=== PATIENT | female | born 1970 | race Caucasian/White ===

== ENCOUNTER 2017-12-31 13:01 | Emergency (ER) | payer BC ==
[~2017-12-31] VITALS: Ht 170.2 cm; Wt 83.0 kg
[2017-12-31 13:06] VITALS: TEMP 36.8; Ht 170.2 cm; Wt 83.0 kg
--- NOTE | 2017-12-31 13:52 | EMERGENCY ROOM VISIT NOTE ---
History Report prepared by Eber: Tanesha Richard Under the Supervision of: Dr. Raulito Arteaga M.D. First contact with patient: 13:31 Chief Complaint: SEIZURE Stated Complaint: SEIZURE Nursing Triage Summary: patient at [facility] for alchool recovery. without a drink since December 15. was drinking 1/5 of vodka on daily basis. today was outside at [place] smoking a cigarette when she felt herself becoming shaky. next thing she remembers she woke up in a different area than the smokers hut and with people all around. she was told she had a grandmal seizure that lasted approx 10 min. EMS states she was A&O x 4 upon arrival. patient alert and oriented in ER. History of Present Illness The patient is a 47 year old female who presents to the Emergency Room with complaints of an episode of a seizure beginning today. The patient notes she has been at [facility] for alcohol recovery for the last 2 weeks, and her last drink was 2 weeks ago. She states her seizure was witnessed and she was caught before she hit her head. The patient notes she was told she had a grand mal seizure and was Grand mal 10 minutes. She reports she had a headache, which has since resolved. The patient denies any fevers. She notes she is tapering off Flexor, and stopped taking Kepra last night (was on 500 mg). She denies a history of diabetes. The patient reports a history of hysterectomy. Source of History: patient Onset: today Position: head Quality: other (seizure) Timing: other (episode) Associated Symptoms: + headache (resolved), No fevers Review of Systems See HPI for pertinent positives and negatives. A total of ten systems were reviewed and were otherwise negative. Past Medical & Surgical Surgical Problems: (1) Hx of hysterectomy Social History Problems: (1) Alcohol abuse Family History No pertinent family history stated. Social History Smoking Status: Current Every Day Smoker Alcohol Use: other (in recovery for alcohol abuse, last drink 12/14/17) Housing Status: other ([facility]) Current/Historical Medications Scheduled Esomeprazole Magnesium (Nexium), 40 MG PO DAILY Folic Acid (Folic Acid), 1 MG PO DAILY Levetiracetam (Keppra), 500 MG PO BID Multivitamin (Multivitamin), 1 TAB PO DAILY Potassium Ext Rel (Klor-Con), 20 MEQ PO DAILY Thiamine Hcl (Vitamin B-1), 100 MG PO DAILY Venlafaxine Hcl (Effexor Extended Rel), 150 MG PO QAM Venlafaxine Hcl (Effexor Xr), 37.5 MG PO QAM Scheduled PRN Diphenhydramine Hcl (Benadryl Allergy), 25 MG PO TID PRN for Allergic Reaction Valacyclovir (Valtrex), 500 MG PO BID PRN for COLD SORES Allergies Coded Allergies: Morphine (Unverified Allergy, Intermediate, SWELLING, RASH, 12/31/17) Physical Exam Vital Signs Date Time Temp Pulse Resp B/P (MAP) Pulse Ox O2 Delivery O2 Flow Rate FiO2 12/31/17 15:00 76 20 115/76 98 Room Air 12/31/17 13:15 80 12/31/17 13:06 36.8 88 20 125/91 98 Room Air Physical Exam Physical Exam GENERAL: She is oriented to person, place, and time. She appears well- developed and well-nourished. She does not appear distressed. HENT: Exam performed. Head: Normocephalic and atraumatic. Right Ear: External ear normal. No mastoid tenderness. Left Ear: External ear normal. No mastoid tenderness. Mouth/Throat: The oropharynx is clear and moist. No trismus in the jaw. No dental abscesses or uvula swelling. No oropharyngeal exudate or tonsillar abscesses. EYES: Conjunctivae and EOM are normal. Pupils are equal, round, and reactive to light. Right eye exhibits no discharge. Left eye exhibits no discharge. No scleral icterus. NECK: Normal range of motion. Neck supple. No JVD present. No spinous process tenderness present. No carotid bruit present. No rigidity. No tracheal deviation and normal range of motion present. No Brudzinski's sign and no Kernig 's sign noted. CV: Normal rate, regular rhythm, normal heart sounds and intact distal pulses. There is no peripheral edema. Palpable radial pulses bue. PULM/CHEST: Effort normal and breath sounds normal. No respiratory distress. No stridor. She has no wheezes. She has no rales. Chest Wall: She exhibits no tenderness. ABD: The abdomen is soft. Bowel sounds are normal. She has no distension. No mass is present. There is no tenderness. There is no rebound, no guarding, no Rocha's sign and no tenderness at McBurney's point. Rovsig negative MUSC/SKEL: Normal range of motion. There is no peripheral edema, tenderness or deformity. LYMPH: No cervical adenopathy. NEURO: She is alert and oriented to person, place, and time. She has normal strength. No cranial nerve deficit or sensory deficit. Coordination and gait normal. GCS eye subscore is 4. GCS verbal subscore is 5. GCS motor subscore is 6. Cerebellar tests wnl. SKIN: Skin is warm and dry. She is not diaphoretic. PSYCH: She has a normal mood and affect. Behavior is normal. Judgment and thought content normal. Medical Decision & Procedures ER Provider Diagnostic Interpretation: Radiology results as stated below per my review and radiologist interpretation: HEAD WITHOUT CONTRAST (CT) CLINICAL HISTORY: 47 years-old Female presenting with seizure etoh withdrawl. TECHNIQUE: Multidetector CT imaging of the head was performed without the use of intravenous contrast. IV contrast: None. A dose lowering technique was used consistent with the principles of ALARA (as low as reasonably achievable). COMPARISON: None. CT DOSE (mGy.cm): The estimated cumulative dose is 638.56 mGycm. FINDINGS: Decal Maker topogram: Unremarkable. Ventricles and sulci normal in size. Brain parenchyma normal in appearance with preserved monsalve-white differentiation. No mass effect or midline shift. No hemorrhage or acute territorial infarct. No extra-axial fluid collection. Paranasal sinuses and mastoid air cells clear. Calvarium intact. IMPRESSION: 1. No acute intracranial abnormality. Electronically signed by: Regan Cartwright M.D. 12/31/2017 2:10 PM Dictated Date/Time: 12/31/2017 2:08 PM Laboratory Results 12/31/17 13:46 Test 12/31/17 13:11 12/31/17 13:46 12/31/17 13:57 Urine Color YELLOW Urine Appearance CLEAR (CLEAR) Urine pH 5.5 (4.5-7.5) Urine Specific [place] 1.005 (1.000-1.030) Urine Protein NEG (NEG) Urine Glucose (UA) NEG (NEG) Urine Ketones NEG (NEG) Urine Occult Blood NEG (NEG) Urine Nitrite NEG (NEG) Urine Bilirubin NEG (NEG) Urine Urobilinogen NEG (NEG) Urine Leukocyte Esterase NEG (NEG) Urine Test NEG (NEG) Est Creatinine Clear Calc Drug Dose 108.2 ml/min Estimated GFR () 116.4 Estimated GFR (Non- 100.4 BUN/Creatinine Ratio 6.8 (10-20) Calcium Level 9.5 mg/dl (8.5-10.1) Magnesium Level 2.2 mg/dl (1.8-2.4) Bedside Hemoglobin 14.6 g/dl (12.0-16.0) Bedside Hematocrit 43 % (37-47) Bedside Sodium 142 mEq/L (135-144) Bedside Potassium 5.4 mEq/L (3.3-5.0) Bedside Chloride 105 mEq/L (101-112) Bedside Total CO2 28 mEq/l (24-31) Anion Gap 15.0 mmol/L (16-25) Bedside Blood Urea Nitrogen 3 mg/dl (7-18) Bedside Creatinine 0.6 mg/dl (0.6-1.3) Bedside Glucose (other) 85 mg/dl (70-99) Bedside Ionized Calcium (Rere) 1.14 mmol/l (1.12-1.32) Laboratory results reviewed by [facility] ED Course 1334: The patient was evaluated in room C11B. A complete history and physical exam was performed. 1441: Vital signs stable. Labs and imagine within normal limits. Seizures thought to be possibly due to cessation of alcohol and benzodiazepine use due to being in inpatient rehab program. Patient is oriented x4, neurologically intact, no evidence of DTs while in the emergency department.learning strategist will notify rehab treatment center and arrange for transfer back there. DISCHARGE - Plan of care discussed with patient and questions answered. The patient was given both verbal and printed discharge instructions. The patient verbalized understanding and ability to comply. The patient is to seek outpatient follow up as noted in the discharge instructions. The patient verbalized understanding and ability to comply. The patient is discharged in stable condition. The patient was instructed to return for worsening symptoms. Medical Decision Vital signs stable. Labs and imagine within normal limits. Seizures thought to be possibly due to cessation of alcohol and benzodiazepine use due to being in inpatient rehab program. Patient is oriented x4, neurologically intact, no evidence of DTs while in the emergency department.learning strategist will notify rehab treatment center and arrange for transfer back there. DISCHARGE - Plan of care discussed with patient and questions answered. The patient was given both verbal and printed discharge instructions. The patient verbalized understanding and ability to comply. The patient is to seek outpatient follow up as noted in the discharge instructions. The patient verbalized understanding and ability to comply. The patient is discharged in stable condition. The patient was instructed to return for worsening symptoms. Medication Reconcilliation Current Medication List: was personally reviewed by me Blood Pressure Screening Patient's blood pressure: Normal blood pressure Blood pressure disposition: Did not require urgent referral Impression Primary Impression: Seizure Scribe Attestation The scribe's documentation has been prepared under my direction and personally reviewed by me in its entirety. I confirm that the note above accurately reflects all work, treatment, procedures, and medical decision making performed by me. The chart was completed utilizing [employer] Speech voice recognition software. Grammatical errors, random word insertions, pronoun errors, and incomplete sentences are an occasional consequence of this system due to software limitations, ambient noise, and hardware issues. Any formal questions or concerns about the content, text, or information contained within the body of this dictation should be directly addressed to the physician for clarification. Departure Information Dispostion Home / Self-Care Forms HOME CARE DOCUMENTATION FORM, IMPORTANT VISIT INFORMATION Patient Instructions My [facility]
[2017-12-31 14:05] LABS: ISTAT CREATININE 0.6 mg/dl (0.6-1.3); ISTAT IONIZED CALCIUM 1.14 mmol/l (1.12-1.32); ISTAT POTASSIUM 5.4 mEq/L (3.3-5.0)
[2017-12-31] MEDS ORDERED: NXM/40 PO (14:05)
[2017-12-31] MEDS ORDERED: FLV1 PO (14:05)
[2017-12-31] MEDS ORDERED: VENL150C56 PO (14:05)
[2017-12-31] MEDS ORDERED: POTA-639 PO (14:05)
[2017-12-31] MEDS ORDERED: LEVE500T13 PO (14:05)
[2017-12-31] MEDS ORDERED: MULT-506 PO (14:05)
[2017-12-31] MEDS ORDERED: THIA100T10 PO (14:05)
[2017-12-31] MEDS ORDERED: VENL37.52 PO (14:05)
[2017-12-31] MEDS ORDERED: DIPH1TAB87 PO (14:05)
[2017-12-31] MEDS ORDERED: VALA500T60 PO (14:05)
--- NOTE | 2017-12-31 14:11 | DIAGNOSTIC IMAGING REPORT ---
HEAD WITHOUT CONTRAST (CT) CLINICAL HISTORY: 47 years-old Female presenting with seizure etoh withdrawl. TECHNIQUE: Multidetector CT imaging of the head was performed without the use of intravenous contrast. IV contrast: None. A dose lowering technique was used consistent with the principles of ALARA (as low as reasonably achievable). COMPARISON: None. CT DOSE (mGy.cm): The estimated cumulative dose is 638.56 mGycm. FINDINGS: Millinery Copyist topogram: Unremarkable. Ventricles and sulci normal in size. Brain parenchyma normal in appearance with preserved monsalve-white differentiation. No mass effect or midline shift. No hemorrhage or acute territorial infarct. No extra-axial fluid collection. Paranasal sinuses and mastoid air cells clear. Calvarium intact. IMPRESSION: 1. No acute intracranial abnormality. Electronically signed by: Regan Cartwright M.D. 12/31/2017 2:10 PM Dictated Date/Time: 12/31/2017 2:08 PM
[2017-12-31 14:28] LABS: CALCIUM 9.5 mg/dl (8.5-10.1); CREATININE 0.72 mg/dl (0.60-1.20)
[2017-12-31 17:57] VITALS: BP 125/72; PULSE 60; O2SAT 98
== END 2017-12-31 17:57 | disposition home or self-care (01) ==
LOC: EDBD 13:01 → C.EDC 13:02
DX: R56.9 Unspecified convulsions (principal); F17.200 Nicotine dependence, unspecified, uncomplicated; Z88.5 Allergy status to narcotic agent